=== PATIENT | male | born 1980 | race Caucasian/White ===

== ENCOUNTER 2020-10-28 23:13 | Emergency (ER) | payer BC ==
[~2020-10-28] VITALS: Ht 172.7 cm; Wt 120.2 kg
[2020-10-28] MEDS ORDERED: HYDROCODONE/APAP 10MG-325MG TAB PO ONE (23:45)
[2020-10-28] MEDS ORDERED: TETANUS/DIPHTHERIA TOX ADULT 0.5 ML SYR IM ONE (23:45)
[2020-10-29] MEDS ORDERED: HYDROCODONE/APAP 5MG-325MG TAB ONE (00:52)
[2020-10-29] MEDS ORDERED: TETANUS/DIPHTHERIA TOX ADULT 0.5 ML SYR ONE (00:53)
[2020-10-29] MEDS ORDERED: HYDROCODONE/APAP 5MG-325MG TAB PO ONE (01:00)
[2020-10-29] MEDS ORDERED: HYDROCODON-ACE1 EA12 PO (01:05)
[2020-10-29 01:24] VITALS: BP 126/90
== END 2020-10-29 01:24 | disposition home or self-care (01) ==
LOC: FSED 23:41
DX: S42.021A Displaced fracture of shaft of right clavicle, initial encounter for closed fracture (principal); S22.41XA Multiple fractures of ribs, right side, initial encounter for closed fracture; S50.811A Abrasion of right forearm, initial encounter; S60.511A Abrasion of right hand, initial encounter; V28.0XXA Motorcycle driver injured in noncollision transport accident in nontraffic accident, initial encounter; Y92.410 Unspecified street and highway as the place of occurrence of the external cause
CPT/HCPCS: 71101; 90471; 90714; 96372; 99283